=== PATIENT | male | born 1980 | race Caucasian/White ===

== ENCOUNTER 2019-08-06 17:11 | Emergency (ER) | payer SELFPAY ==
--- NOTE | 2019-08-06 17:28 | ED.PDOC ---
History of Present Illness - General Time Seen by Provider: 08/06/19 17:23 - History of Present Illness Initial Comments: 39-year-old male presents by personal vehicle for progressive low back pain for 2 days, after an injury lifting and twisting approximately 2 days ago. No prior significant issues with back pain, he denies radiation to the legs. No groin anesthesia or bladder or bowel incontinence. No fevers. Has taken ibuprofen, without pain relief. Home Medications: Ambulatory Orders Dexamethasone [Decadron] 4 mg PO DAILY #3 tab 08/06/19 Methocarbamol [Robaxin] 500 mg PO Q6H PRN #15 tab 08/06/19 Tramadol HCl [Ultram] 50 mg PO Q4H PRN #15 tab 08/06/19 Review of Systems - Review of Systems Review of Systems: 08/06/19 17:27 General: Denies generalized weakness, fever, arthralgia/myalgia HEENT: Denies sore throat, rhinorrhea Cardiovascular: Denies chest pain, palpitations Respiratory: Denies SOB, cough Gastrointestinal: Denies abdominal pain, vomiting, diarrhea : Denies dysuria, frequency Musculoskeletal: has back pain, Denies extremity pain, extremity swelling Integument: Denies rash, itching Neuro: Denies focal weakness or numbness Psych: Denies depression, hallucinations. Family Medical History - Family History Mother Family History: Unknown Living Status: Unknown Physical Exam - Physical Exam Comments: General Appearance: Patient is awake and alert. Skin: Warm and dry. No diaphoresis. No rash or other lesions. Head: Normocephalic/atraumatic. Eyes: PERRL, lids, conjunctiva and sclera unremarkable. EOMI intact. ENT: No nasal discharge. Oropharynx. Without erythema, exudate, lesions. Moist mucous membranes. Neck: Supple. No LAD. No tenderness. No JVD noted. Respiratory: Normal rate and effort. Breath sounds clear bilaterally. Cardiovascular: Regular rate. Heart sounds normal. No murmur. GI: Abdomen soft, non-distended and non-tender. No rebound/guarding. Bowel sounds normal. Back: lumbar paraspinal spasm, no midline tenderness, SLR neg. Musculoskeletal: Extremities- Normal range of motion. No effusion, cyanosis, edema. Neurological: Alert. No facial palsy. Speech clear. Gag intact. No motor deficit, str symmetric. No sensory deficit. Progress - Progress Progress: Safety Stop Patient feels better. VS, exam remain reassuring. I have discussed findings, diff dx, plan of care, need for follow-up, and reasons to return to the ED. Safety Stop (Diagnostic Time-Out): Tachycardia: No Diagnostic Studies: n/a Diagnostic Certainty: moderate Patient/family feels safe with discharge: Yes 08/06/19 17:34 Departure - Departure Clinical Impression: Acute myofascial strain of lumbar region Time of Disposition: 17:28 Disposition: Discharge to Home or Self Care Condition: Good Departure Forms: ED Discharge - Pt. Copy, ED Discharge - Work Release Instructions: Low Back Pain in Adults, Back Exercises Diet: resume usual diet Activity: increase activity as tolerated Prescriptions: Dexamethasone [Decadron] 4 mg PO DAILY #3 tab Methocarbamol [Robaxin] 500 mg PO Q6H PRN #15 tab PRN Reason: muscle spasm Tramadol HCl [Ultram] 50 mg PO Q4H PRN #15 tab PRN Reason: Pain Home Medications: Ambulatory Orders Dexamethasone [Decadron] 4 mg PO DAILY #3 tab 08/06/19 Methocarbamol [Robaxin] 500 mg PO Q6H PRN #15 tab 08/06/19 Tramadol HCl [Ultram] 50 mg PO Q4H PRN #15 tab 08/06/19 Comments: Jad Chua MD Emergency Medicine #[id number]
[2019-08-06] MEDS: traMADol HCL 50 MG TAB PO ONE (17:29)
[2019-08-06] MEDS: METHOCARBAMOL 750 MG TAB PO ONE (17:29)
[2019-08-06] MEDS: DEXAMETHASONE 4 MG TAB PO ONE (17:30)
[2019-08-06 17:37] VITALS: BP 146/89; TEMP 98.8; O2SAT 97
== END 2019-08-06 17:41 | disposition home or self-care (01) ==
LOC: ER 17:11
DX: S39.012A Strain of muscle, fascia and tendon of lower back, initial encounter (principal); X50.9XXA Other and unspecified overexertion or strenuous movements or postures, initial encounter; Y92.9 Unspecified place or not applicable

== ENCOUNTER 2019-12-31 11:16 | Emergency (ER) | payer SELFPAY ==
--- NOTE | 2019-12-31 11:32 | ED.PDOC ---
History of Present Illness - General Time Seen by Provider: 12/31/19 11:18 Source: patient, RN notes reviewed, Vital Signs reviewed Exam Limitations: no limitations - History of Present Illness Comments: 39 yo otherwise healthy male comes in with 2 days of cough, congestion, body aches, lost of taste and smell. no known sick contacts, but works at [employer]. no known fever. denies sore throat, n/v/d. no abdominal pain. Allergies/Adverse Reactions: Allergies NO KNOWN ALLERGY Allergy (Verified 12/02/19 18:08) Home Medications: Ambulatory Orders Acetaminophen W/ Codeine [Tylenol W/ CODEINE #3] 1 tab PO Q6H PRN 5 Days #12 tab 12/02/19 Albuterol Inhaler [Ventolin Hfa Inhaler] 1 puff INH Q6H PRN #1 inh 12/31/19 Azithromycin 250 mg PO DAILY 5 Days #6 tab 12/31/19 Prednisone 20 mg PO DAILY 4 Days #8 tab 12/31/19 Review of Systems - Review of Systems Constitutional: States: malaise. Denies: chills, fever EENTM: States: nose congestion. Denies: blurred vision, throat pain, throat swelling, mouth pain Respiratory: States: cough, wheezing. Denies: short of breath Cardiology: Denies: chest pain, palpitations, syncope Gastrointestinal/Abdominal: Denies: abdominal pain, diarrhea, nausea, vomiting Genitourinary: Denies: discharge, frequency, hematuria Skin: Denies: rash Neurological: Denies: headache, numbness, paresthesia, tingling, tremors, weakness Endocrine: Denies: increased thirst, increased urine, unexplained weight gain, unexplained weight loss Hematologic/Lymphatic: Denies: blood clots, easy bleeding, easy bruising Past Medical History (General) - Patient Medical History Hx Seizures: No Hx Stroke: No Hx Dementia: No Hx Asthma: No Hx of COPD: No Hx Cardiac Disorders: No Hx Congestive Heart Failure: No Hx Pacemaker: No Hx Hypertension: No Hx Thyroid Disease: No Hx Diabetes: No Hx Gastroesophageal Reflux: No Hx Renal Disease: No Hx Cancer: No Hx of HIV: No Hx Hepatitis C: No Hx MRSA: No - Vaccination History Hx Tetanus, Diphtheria Vaccination: No Hx Influenza Vaccination: No Hx Pneumococcal Vaccination: No - Social History Hx Tobacco Use: Yes Hx Alcohol Use: No Hx Substance Use: No Hx Substance Use Treatment: No Hx Depression: No - Female History Patient : No Family Medical History - Family History Mother Family History: Unknown Living Status: Unknown Physical Exam - Physical Exam General Appearance: Alert, Comfortable, No apparent distress, Well Developed, Well Groomed, Well Hydrated, Well Nourished ENT Exam: normal ENT inspection, hearing grossly normal, TMs normal, pharynx normal Neck: non-tender, full range of motion, supple, normal inspection, trachea midline Respiratory: chest non-tender, no respiratory distress, no accessory muscle use, wheezing, other - hacking porductive cough. 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 I do believe this could be a false negative and do recommend quarantine. The data reviewed when caring for this patient included: nurse notes, prior records, etc. The history and assessments from nurses notes were reviewed and considered, and the patient's home medication list was also reviewed and considered. My assessment and the results of testing completed here in the ED were discussed with the patient/family. All questions were answered, and they express understanding of my assessment and the plan. They have been instructed to return if their symptoms worsen, and have been asked to follow up with their primary care physician to recheck today's presenting complaint. return precautions given. I have reviewed medication, benefits, alternatives and side effects. Patient decided to proceed with medication. Svetlana Garcia DO #[id number] - EKG/XRAY/CT XRAY: chest - no acute cardiopulmonary pathology Departure - Departure Clinical Impression: Bronchitis Time of Disposition: 12:20 Disposition: Discharge to Home or Self Care Condition: Fair Departure Forms: ED Discharge - Pt. Copy, ED Discharge - Work Release, Patient Portal Self Enrollment Instructions: Acute Bronchitis, Cough, Adult (DC) Prescriptions: Azithromycin 250 mg PO DAILY 5 Days #6 tab Prednisone 20 mg PO DAILY 4 Days #8 tab Albuterol Inhaler [Ventolin Hfa Inhaler] 1 puff INH Q6H PRN #1 inh PRN Reason: Wheezing Home Medications: Ambulatory Orders Acetaminophen W/ Codeine [Tylenol W/ CODEINE #3] 1 tab PO Q6H PRN 5 Days #12 tab 12/02/19 Albuterol Inhaler [Ventolin Hfa Inhaler] 1 puff INH Q6H PRN #1 inh 12/31/19 Azithromycin 250 mg PO DAILY 5 Days #6 tab 12/31/19 Prednisone 20 mg PO DAILY 4 Days #8 tab 12/31/19
[2019-12-31] MEDS ORDERED: DEXAMETHASONE 4 MG TAB PO ONE (11:33)
--- NOTE | 2019-12-31 12:46 | RAD ---
EXAM DESCRIPTION: Chest,1 View CLINICAL HISTORY: 39 years Male covid, cough COMPARISON: None TECHNIQUE: Portable AP view of the chest is obtained. FINDINGS IN THE CHEST: Heart: Allowing for magnification factors related to AP portable technique and body habitus, the heart is normal in size and configuration. Vasculature: [] There is no evidence of aortic aneurysm or acute findings. The pulmonary vascularity is normal. Mediastinum: No evidence of mass or adenopathy. Lungs: There is no focal consolidation in the lungs. Pleura: There are no pleural effusions. There are no pneumothoraces. Osseous structures: No evidence of acute fracture, osteolytic lesions or osteoblastic lesions. Tubes and catheters: None Chest wall: Unremarkable. Visualized Abdomen: Unremarkable. IMPRESSION: No significant [] radiographic abnormalities in the chest. Remainder of findings as described above. Electronically signed by: Janice Garcia MD 12/31/2019 12:45 PM CDT
[2019-12-31 13:03] VITALS: BP 150/94; TEMP 97.8; O2SAT 95
== END 2019-12-31 12:50 | disposition home or self-care (01) ==
LOC: ER 11:16
DX: J40 Bronchitis, not specified as acute or chronic (principal); R43.8 Other disturbances of smell and taste; M79.10 Myalgia, unspecified site; Z20.828 Contact with and (suspected) exposure to other viral communicable diseases
CPT/HCPCS: 71045; 87502; 87635; J8540

== ENCOUNTER 2020-01-03 15:48 | Emergency (ER) | payer SELFPAY ==
--- NOTE | 2020-01-03 16:58 | ED.PDOC ---
History of Present Illness - General Chief Complaint: Respiratory Problem Stated Complaint: possible COVID Time Seen by Provider: 01/03/20 16:55 Source: patient, RN notes reviewed, Vital Signs reviewed Exam Limitations: no limitations - History of Present Illness Initial Comments: Patient is 39-year-old white male who presents for recheck from his visit from 3 days ago. Approximately 3 to 4 days ago patient was having body aches, low- grade fevers, intermittent cough and came here thinking he had Covid. His rapid Covid test was negative. Patient was written to be off work until he was rechecked by PCP. Patient does not have a PCP so returns here for recheck. Patient symptoms have resolved and he is ready to go back to work. Timing/Duration: other - 4 days Severity: moderate Improving Factors: nothing Worsening Factors: nothing Associated Symptoms: cough, fever/chills - Subjective fever, malaise Allergies/Adverse Reactions: Allergies NO KNOWN ALLERGY Allergy (Verified 01/03/20 16:33) Home Medications: Ambulatory Orders Acetaminophen W/ Codeine [Tylenol W/ CODEINE #3] 1 tab PO Q6H PRN 5 Days #12 tab 12/02/19 Albuterol Inhaler [Ventolin Hfa Inhaler] 1 puff INH Q6H PRN #1 inh 12/31/19 Azithromycin 250 mg PO DAILY 5 Days #6 tab 12/31/19 Prednisone 20 mg PO DAILY 4 Days #8 tab 12/31/19 Review of Systems - Review of Systems Constitutional: States: see HPI, chills, fever, malaise. Denies: weakness EENTM: States: no symptoms reported. Denies: eye pain, blurred vision, double vision Respiratory: States: see HPI, cough. Denies: short of breath, wheezing Cardiology: States: no symptoms reported. Denies: chest pain, palpitations, syncope Gastrointestinal/Abdominal: States: no symptoms reported. Denies: abdominal pain, diarrhea, nausea, vomiting Genitourinary: States: no symptoms reported. Denies: dysuria, frequency Musculoskeletal: States: no symptoms reported, joint pain. Denies: back pain, joint swelling, neck pain Skin: States: no symptoms reported. Denies: change in color, rash Neurological: States: no symptoms reported. Denies: headache, numbness, paresthesia, weakness Endocrine: States: no symptoms reported. Denies: increased hunger, increased thirst, increased urine Hematologic/Lymphatic: States: no symptoms reported. Denies: blood clots, easy bleeding All other Systems: Reviewed and Negative Past Medical History (General) - Patient Medical History Hx Seizures: No Hx Stroke: No Hx Dementia: No Hx Asthma: No Hx of COPD: No Hx Cardiac Disorders: No Hx Congestive Heart Failure: No Hx Pacemaker: No Hx Hypertension: No Hx Thyroid Disease: No Hx Diabetes: No Hx Gastroesophageal Reflux: No Hx Renal Disease: No Hx Cancer: No Hx of HIV: No Hx Hepatitis C: No Hx MRSA: No Surgical History: cholecystectomy - Vaccination History Hx Tetanus, Diphtheria Vaccination: No Hx Influenza Vaccination: No Hx Pneumococcal Vaccination: No - Social History Hx Tobacco Use: Yes Hx Alcohol Use: No Hx Substance Use: No Hx Substance Use Treatment: No Hx Depression: No - Activities of Daily Living Hospice Agency (if applicable):: None - Female History Patient : No Family Medical History - Family History Mother Family History: Unknown Living Status: Unknown Physical Exam - Physical Exam General Appearance: Alert, Comfortable, Unkempt, Well Developed, Well Hydrated, Well Nourished Eye Exam: bilateral normal Ears, Nose, Throat: hearing grossly normal, normal ENT inspection, normal pharynx Neck: non-tender, full range of motion, supple Respiratory: chest non-tender, lungs clear, normal breath sounds, no respiratory distress Cardiovascular/Chest: normal peripheral pulses, no edema, no gallop, no JVD, no murmur, tachycardia Peripheral Pulses: radial,right: 2+, radial,left: 2+ Gastrointestinal/Abdominal: normal bowel sounds, non tender, soft Back Exam: normal inspection, no CVA tenderness, no vertebral tenderness Extremity: normal range of motion, non-tender, normal inspection 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 01/03/20 16:59 Patient here for recheck. His Covid test is negative again. Probable viral URI. Plan on discharge home. Patient to follow-up with the [facility] as needed. Patient will be given a return to work note. I discussed this plan of care with the patient he voices understanding and agreement. Alejandro Eddy M.D. #[id number] - Results/Orders Results/Orders: Covid negative Departure - Departure Clinical Impression: Viral upper respiratory tract infection with cough Time of Disposition: 17:01 Disposition: Discharge to Home or Self Care Condition: Good Departure Forms: ED Discharge - Pt. Copy, ED Discharge - Work Release, Patient Portal Self Enrollment, Work Release Form Instructions: Viral Upper Respiratory Infection, Adult (DC) Diet: resume usual diet Activity: increase activity as tolerated Home Medications: Ambulatory Orders Acetaminophen W/ Codeine [Tylenol W/ CODEINE #3] 1 tab PO Q6H PRN 5 Days #12 tab 12/02/19 Albuterol Inhaler [Ventolin Hfa Inhaler] 1 puff INH Q6H PRN #1 inh 12/31/19 Azithromycin 250 mg PO DAILY 5 Days #6 tab 12/31/19 Prednisone 20 mg PO DAILY 4 Days #8 tab 12/31/19
[2020-01-03 17:26] VITALS: BP 132/92; TEMP 97.6; O2SAT 97
== END 2020-01-03 17:15 | disposition home or self-care (01) ==
LOC: ER 15:48
DX: J06.9 Acute upper respiratory infection, unspecified (principal); Z20.828 Contact with and (suspected) exposure to other viral communicable diseases; Z87.891 Personal history of nicotine dependence